=== PATIENT | female | born 1935 | race Hispanic/Latino ===

== ENCOUNTER 2016-04-11 06:08 | Inpatient (IN) | payer MEDICARE ==
--- NOTE | 2016-04-10 19:38 | Admit Criteria Form ---
Admission Criteria Documentation: AMBULATORY SURGERY EXCEPTION CRITERIA Ambulatory Surgery Exception Criteria ( Place 'X' for any and all applicable criteria): Surgery or procedure performed on ambulatory basis may require inpatient stay for[A] ANY ONE of the following(1)(2)(3)(4)(5)(6)(7)(8)(9): [X] I. A preoperative situation, condition, or finding that warrants inpatient stay as indicated by ANY ONE of the following: [] a) Inpatient care needed because of severity of a disease or condition rather than the surgery (eg, severe cardiac or respiratory disease, severe infection) (15) (16 ) (17) (18) [] b) Emergent procedure (eg, angioplasty for acute ischemia)(19) [] c) Complex surgical approach or situation as indicated by ANY ONE of the following(3): [] i) Open approach needed instead of usual endoscopic, transcatheter, or other less invasive procedure [] ii) Difficult approach because of previous operation [] iii) Airway monitoring required after open neck procedures(20)(21) [] iv) Large mass requiring unusually extensive dissection [] v) Additional complicating feature requiring inpatient care (eg, drain management)(22(23): [X] d) Major surgery in a pt with high anesthetic risk as indicated by ANY ONE of the following (2)(3)(5)(7)(8): [X] i) ASA risk class III or higher (severe systemic disease impairing function) [D] [] ii) Advanced age (eg, older than 85 years)(14)(24) [] iii) Symptomatic heart failure(25) [] iv) Symptomatic asthma or COPD(8)(21) [] v) Morbid obesity with hemodynamic or respiratory problems(20)( 21)(26)(27) [] vi) Obstructive sleep apnea(20)(21) [] vii) Former premature infants who are younger than 60 weeks [] viii) High risk for severe postoperative abnormalities (eg, severe postoperative hypocalcemia after parathyroidectomy for severe hyperparathyroidism)(27)( 28) [] ix) Unstable angina(25) [] e) Drug-related risk requiring inpatient stay as indicated by ANY ONE of the following(5)(10)(14)(32)(33) [] i) Procedure requires discontinuing drugs or other therapy (eg , antiarrhythmic medication, antiseizure medication), which necessitates inpatient observation or treatment.(18)(31) [] ii) Major surgery and high risk drug use as indicated by ANY ONE of the following: [] 1) Active abuse of cocaine or similar drug [] 2) Monoamine oxidase inhibitor use [] 3) Other drug identified as posing risk [] f) Inadequate outpatient care situation as indicated by ANY ONE of the following(5)(10)(14)(32)(33) [] i) Patient lives remote from medical facility and procedure has urgent complication potential, and temporary nearby residence cannot be arranged [] ii) Patient will have postprocedure incapacitation and inadequate assistance at home, or alternative level of care cannot be arranged. [] iii) Patient will have long general anesthesia or procedure side effect resolution time, and competent person to stay with patient on first postoperative night at home or alternative level of care cannot be arranged. []iv) Other inadequate outpatient situation that cannot be handled by other means [] II. A perioperative event, condition, or finding that warrants inpatient stay as indicated by ANY ONE of the following (1)(2)(3): [] a) Inadequate physiologic recovery: cardiovascular, respiratory, or hemodynamic status not normal or near preoperative baseline(18) [] b) Hemodynamic instability [] c) Patient not alert with near normal or baseline mental status [] d) Temperature not normal or as expected and not appropriate for outpatient treatment of condition [] e) Ambulatory or appropriate activity level status not yet achieved post procedure [E](34)(35)(36) [] f) Operative site not appropriate (eg, unexpected or excessive drainage or bleeding) [] g) Postoperative effects not resolved or adequately managed (eg, significant pain or vomiting not appropriate for outpatient or next level of care)(10)(12) [] h) Complicating features requiring inpatient care as indicated by ANY ONE of the following(37): [] i) Severe complications of procedure (eg, bowel injury, airway compromise, vascular injury,severe hemorrhage) [] ii) Extensive (eg, dissection far beyond usual scope of procedure ) or prolonged (eg, 120 minutes beyond usual) surgery needed requiring inpatient postoperative care [] iii) Conversion to an open or complex procedure that requires inpatient care (eg, open vs laparoscopic cholecystectomy, abdominal vs vaginal hysterectomy)(38) [] iv) Comorbid condition or test result identified during or post procedure that requires inpatient care (7) [] v) Malignant hyperthermia(30) [] vi) Other complicating feature requiring inpatient care(22)(23) Inpatient stay may be needed until ALL of the following are present (1)(2)(3)(4) (5)(6)(10)(14)(33)(40): []a) Physiologic recovery: cardiovascular, respiratory, and hemodynamic status normal or near preoperative baseline []b) Hemodynamic stability []c) Patient alert, with near normal or baseline mental status []d) Temperature appropriate: patient afebrile or temperature appropriate for outpt treatment of condition []e) Activity level appropriate: ambulatory or appropriate activity level post procedure []f) Operative site appropriate as indicated by ALL of the following: []i) Site dry or with expected drainage []ii) Any blood noted is as expected for procedure. []g) Postoperative effects resolved or managed as indicated by ALL of the following: []i) Pain management appropriate for outpatient (or next level of) care(10) []ii) Minimal nausea and vomiting: if present, successfully treated with oral medication(12) []iii) Headache, dizziness, or drowsiness (if present) are mild. []h) Voiding status acceptable as indicated by ANY ONE of the following: []i) Voiding spontaneously []ii) No voiding but instructions given for follow-up in 6 to 8 hours []iii) Urinary catheter in place, and instructions given for follow-up []i) Complicating features requiring inpatient care manageable at a lower level of care(37) []j) Comorbid conditions manageable at a lower level of care(37) The original [employer] content created by [employer] has been revised. The portions of the content which have been revised are identified through the use of italic text or in bold, and [employer] has neither reviewed nor approved the modified material. All other unmodified content is copyright [employer]. Please see references footnoted in the original [employer] edition 2016 Admission Criteria Met: Yes
[~2016-04-11 06:08] MED LIST: NACL 0.9% 1000 ML 1,000 ML IV SCH; VANCOMYCIN/NS 1 GM/250 ML 1 GM/250 ML BAG IV NR
[2016-04-11] MEDS ORDERED: NACL BACTERIOSTATIC INFILTRATI ONE (06:42)
--- NOTE | 2016-04-11 07:08 | Anesthesia Consultation ---
Anesthesia Consult and Med Hx Date of service: 04/11/16 - Airway Anesthetic Teeth Evaluation: Dentures ROM Head & Neck: Adequate Mental/Hyoid Distance: Adequate Mallampati Class: Class II Intubation Access Assessment: Probably Good - Pulmonary Exam CTA: Yes - Cardiac Exam Cardiac Exam: RRR - Pre-Operative Health Status ASA Pre-Surgery Classification: ASA3 Proposed Anesthetic Plan: General - Pulmonary Hx Smoking: Yes Hx Asthma: Yes - Cardiovascular System Hx Hypertension: Yes (10 YRS) Hx Heart Murmur: Yes - Endocrine Hx Hypothyroidism: Yes (1988)
--- NOTE | 2016-04-11 07:09 | Anesthesia Day of Surgery ---
Anesthesia Day of Surgery - Day of Surgery Patient Examined: Yes Patient H&P Reviewed: Yes Patient is NPO: Yes
[2016-04-11 07:11] LABS: Basophils % (Auto) 0.5 % (0.0-1.8); Eosinophils % (Auto) 3.4 % (0.0-4.3); Hemoglobin 13.2 gm/dl (10.1-14.3); Mean Corpuscular HGB Conc 33 % (30-34); Mean Corpuscular Hemoglobin 28 pg (28-32); Mean Corpuscular Volume 85 fl (79-97); Platelet Count 289 K/mm3 (140-440); Red Blood Count 4.69 M/mm3 (3.65-5.03); White Blood Count 8.2 K/mm3 (4.5-11.0)
[2016-04-11 07:22] LABS: Calcium 9.1 mg/dL (8.4-10.2); Chloride 100.1 mmol/L (98-107); Potassium 3.9 mmol/L (3.6-5.0)
[2016-04-11] MEDS: VERSED IV PRN ×2 (07:26→07:44)
[2016-04-11] MEDS ORDERED: XYLOCAINE MPF 2% ONE (07:42)
[2016-04-11] MEDS ORDERED: ZEMURON IV ONE ×2 (07:42→10:15)
[2016-04-11] MEDS ORDERED: DIPRIVAN 10 MG/ML IV ONE (07:43)
[2016-04-11] MEDS ORDERED: SUBLIMAZE ONE (07:43)
[2016-04-11] MEDS ORDERED: VERSED IV NR (08:00)
[2016-04-11] MEDS ORDERED: ePHEDrine SULFATE ONE (08:31)
[2016-04-11] MEDS ORDERED: DECADRON ONE (08:34)
[2016-04-11] MEDS ORDERED: ZOFRAN ONE (08:35)
[2016-04-11] MEDS ORDERED: NEO SYNEPHRINE/NS Syringe(OR USE) IV ONE (08:35)
[2016-04-11] MEDS ORDERED: HEPARIN 10,000 UNITS/10 ML ONE ×2 (09:01)
[2016-04-11] MEDS ORDERED: LACTATED RINGERS 0 ML ONE (09:01)
[2016-04-11] MEDS ORDERED: OMNIPAQUE (240 MG) IV ONE (09:31)
[2016-04-11] MEDS ORDERED: MARCAINE 0.5% INFILTRATI ONE (09:31)
[2016-04-11] MEDS ORDERED: HEPARIN 10,000 UNITS/10 ML 4,000 UNIT in NACL 0.9% 1000 ML 1,000 ML IR ONE (09:32)
[2016-04-11] MEDS ORDERED: NACL 0.9% 250ML IV ONE (09:33)
[2016-04-11] MEDS ORDERED: LACTATED RINGERS 1,000 ML ONE (10:15)
[2016-04-11] MEDS ORDERED: BLOXIVERZ ONE (10:38)
[2016-04-11] MEDS ORDERED: ROBINUL ONE (10:38)
[2016-04-11] MEDS ORDERED: DILAUDID ONE (10:57)
--- NOTE | 2016-04-11 11:02 | Consultation ---
History of Present Illness Consult date: 04/11/16 Requesting physician: KALEIGH RIVERA Reason for consult: COPD, other (s/p Triple A endovascular repair) History of present illness: PULMONARY/CCM CONSULT NOTE (Full dictation # [id number]) Please see dictated notes for full details Medications and Allergies Allergies Allergy/AdvReac Type Severity Reaction Status Date / Time quinine Allergy Vomiting Verified 04/09/16 15:07 Sulfa (Sulfonamide Allergy Rash Verified 04/11/16 08:20 Antibiotics) Penicillins AdvReac Anaphylaxis Verified 04/11/16 08:20 Home Medications Medication Instructions Recorded Confirmed Last Taken Type ALPRAZolam [Alprazolam] 0.25 mg PO QDAY 04/09/16 04/09/16 04/10/16 History ALPRAZolam [Alprazolam] 0.5 mg PO HS 04/09/16 04/09/16 04/10/16 History Acetaminophen [Tylenol] 650 mg PO Q6HR PRN 04/09/16 04/09/16 04/10/16 History Amlodipine Besylate [Amlodipine 5 mg PO QDAY 04/09/16 04/11/16 04/11/16 04:00 History Besylate] FLUoxetine [PROzac] 20 mg PO QDAY 04/09/16 04/09/16 04/10/16 History Levothyroxine [Synthroid] 125 mcg PO QAM 04/09/16 04/11/16 04/11/16 04:00 History Losartan Potassium [Losartan 100 mg PO QDAY 04/09/16 04/11/16 04/11/16 04:00 History Potassium] Omeprazole Magnesium [PriLOSEC Otc] 20 mg PO QDAY 04/09/16 04/09/16 04/10/16 History Active Meds: Active Medications Enoxaparin Sodium (Lovenox) 40 mg SUB-Q QDAY [facility] Sodium Chloride (Nacl 0.9% 1000 Ml) 1,000 mls @ 42 mls/hr IV DIRECT [facility] Last Admin: 04/11/16 07:19 Dose: 42 mls/hr Vancomycin HCl (Vancomycin/Ns 1 Gm/250 Ml) 1 gm in 250 mls @ 0 mls/hr IV PREOP NR PRN Reason: Protocol Stop: 04/11/16 23:59 Last Admin: 04/11/16 07:30 Dose: 166 mls/hr Midazolam HCl (Versed) 1 mg IV PREOP NR Stop: 04/11/16 23:59 Last Admin: 04/11/16 07:24 Dose: 1 mg Midazolam HCl (Versed) 2 mg IV PREOP PRN PRN Reason: Anxiety Stop: 04/11/16 23:59 Last Admin: 04/11/16 07:44 Dose: 1 mg Physical Examination Vital signs: Vital Signs Temp Pulse Resp BP Pulse Ox 98.9 F 73 16 123/69 94 04/11/16 06:55 04/11/16 06:55 04/11/16 06:55 04/11/16 06:55 04/11/16 06:55 Results - Laboratory Findings CBC and BMP: 04/11/16 06:49 04/11/16 06:49 PT/INR, D-dimer PT 13.1 Sec. (12.2-14.9) 04/11/16 06:49 INR 1.00 (0.87-1.13) 04/11/16 06:49 Abnormal lab findings: Abnormal Labs 04/11/16 04/11/16 04/11/16 06:49 06:49 06:49 Lymph % (Auto) 37.8 H [place] % (Auto) 9.0 H BUN 22 H Crossmatch See Detail
[2016-04-11] MEDS ORDERED: TYLENOL PO PRN (11:31)
[2016-04-11] MEDS ORDERED: MORPHINE IV PRN ×2 (11:32)
--- NOTE | 2016-04-11 11:56 | Operative Report ---
Operative Report Operative Report: Date of procedure: 04/11/2016 Pre-operative diagnosis: Symptomatic abdominal aortic aneurysm, peripheral vascular disease with claudication bilateral lower extremities Post-operative diagnosis: Same Procedure name(s): Percutaneous endovascular repair of abdominal aortic aneurysm using nodular bifurcated endoprosthesis with single docking limb ([place] Excluder), with fluoroscopic supervision and interpretation #2 insertion of aortic cuff lan/wan engineer, with fluoroscopic supervision and interpretation #3 insertion of catheter into the distal thoracic aorta via bilateral groin approach #4 duplex guided cannulation of bilateral common femoral arteries Surgeon: Dar Garay MD Vice President Payer: Dr. Jayashree Ibarra Anesthesia: Gen. endotracheal EBL: Less than 100 mL Specimen(s): None Complications: None Findings: Excellent deployment of the [place] Excluder despite tortuous aorta with flow limiting thombus mid aneurysm. Initial gutter leak proximal deployment zone successfully treated with a aortic cuff extension device. No evidence of endoleak on completion angiogram Procedure:Patient in the supine position after adequate levels of general endotracheal anesthesia was obtained and all appropriate monitoring devices were placed and abdomen and groin were prepped and draped using standard sterile technique. Access was then obtained sequentially in the right and then the left groin percutaneous technique with duplex guidance with micropuncture needles. Microwire was advanced retrograde replaced by a 5 [place]yrgyz introducer and J wires advanced fluoroscopically into the abdominal aorta. Gradually 6 [place]z introducers were placed in each groin and then proglide percutaneous closure devices were deployed two per side using standard technique. Six [place]yrgyz introducers then placed in each groin over the J-wire then vertebral catheter was used to advance the wires into the suprarenal aorta. Wires were then replaced with Amplatz Super Stiff wires and then the 18 [place] introducer was placed on the left. A 12 [place]yr[place]z introducer was placed on the right A pigtail catheter was then placed up the right side located at the anticipated site of the renal arteries. A 26 x 12 x 16 trunk ipsilateral leg endoprosthesis then advanced through the left side oriented with cross gate technique and advanced and its undeployed proximal gate located above the iliac bifurcation. 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 Were able however to locate the gate just distal to the mid aortic stenosis facilitate cannulation. Contrast was injected which further delineated the location of the renals and all devices were adjusted appropriately. We then partially deployed the device and cannulated the contralateral gate using a vertebral and subsequently a SOS omni catheter. Once successful cannulation was confirmed the Glidewire was replaced with a stiff wire through the contralateral gate .Minor adjustments were made to the position of the endoprosthesis finalizing its location at the immediate infrarenal position. Contralateral leg 18 x 12 iliac llimb was deployed. A compliant balloon was then advanced to the proximal graft and the trunk was posted using standard operating procedures. Once again care was taken not to extend the balloon above the device as to minimize the potential for thromboembolic embolization. Each of the limbs were then posted using a compliant balloon. Angiogram was performed which showed no type I endoleak proximally but there was a large gutter type I leak at the proximal graft. A 26 x 3 aortic lan/wan engineer cuff was deployed just low the renals and posted. Repeat angiogram showed complete resolution of the gutter type I endoleak. The angiogram showed other Endo leaks and the external iliacs were patent with preservation of both internal iliacs. At this point the Amplatz were exchanged for Bentson wires .We sequentially removed the sheaths from the each groin and deployed the pro glide closure devices with excellent hemostatic capture. The left side required one additional Pro-glide closure device for hemostasis. Each of the groins were then closed using Monocryl suture. Should note that each of the groin to the previously been blocked with Marcaine. She was then extubated returned the recovery room in stable condition having tolerated the procedure well.
--- NOTE | 2016-04-11 12:38 | XRay Report ---
AP CHEST History: Central line placement. Findings: A left IJ central line has been inserted which terminates in the mid SVC. There is no evidence for pneumothorax. Chronic changes in both lungs, left greater than right, are stable since CT chest dated 02/09/14. Heart size is within normal limits. Impression: Left IJ central line placement as described. No pneumothorax.
--- NOTE | 2016-04-11 12:57 | Post Anesthesia Evaluation ---
- Post Anesthesia Evaluation Patient Participated: Yes Airway Patent: Yes Stable Respiratory Function: Yes Nausea/Vomiting: No Temp > 96.8F: Yes Pain Manageable: Yes Adequeate Hydration: Yes Anesthesia Complications: No Block Receding Appropriately: Not Applicable Patient on Ventilator: No
--- NOTE | 2016-04-11 15:42 | Consultation ---
History of Present Illness Consult date: 04/11/16 Requesting physician: KALEIGH GARAY Consult reason: post op evaluation History of present illness: The patient is an 80 year old female who is followed by Dr. Sanderson in the office who underwent percutaneous AAA repair today by Dr. Garay. Cardiology has been consulted for post-operative cardiac management. Currently she is resting comfortably in bed without complaints. She denies any chest pain or shortness of breath. Echo done 03/2016 showed EF 55-60%, mild AR. Lexiscan thallium stress test done 03/2016 was negative for ischemia. Past History Past Medical History: COPD, hypertension, hypothyroidism, PVD, other (asthma) Past Surgical History: cataract removal, hysterectomy, Other (bladder surgery, nuck surgery, lung surgery) Social history: lives with family. denies: smoking, alcohol abuse, prescription drug abuse, IV drug use Family history: no significant family history Medications and Allergies Allergies Allergy/AdvReac Type Severity Reaction Status Date / Time quinine Allergy Vomiting Verified 04/09/16 15:07 Sulfa (Sulfonamide Allergy Rash Verified 04/11/16 08:20 Antibiotics) Penicillins AdvReac Anaphylaxis Verified 04/11/16 08:20 Home Medications Medication Instructions Recorded Confirmed Last Taken Type ALPRAZolam [Alprazolam] 0.25 mg PO QDAY 04/09/16 04/09/16 04/10/16 History ALPRAZolam [Alprazolam] 0.5 mg PO HS 04/09/16 04/09/16 04/10/16 History Acetaminophen [Tylenol] 650 mg PO Q6HR PRN 04/09/16 04/09/16 04/10/16 History Amlodipine Besylate [Amlodipine 5 mg PO QDAY 04/09/16 04/11/16 04/11/16 04:00 History Besylate] FLUoxetine [PROzac] 20 mg PO QDAY 04/09/16 04/09/16 04/10/16 History Levothyroxine [Synthroid] 125 mcg PO QAM 04/09/16 04/11/16 04/11/16 04:00 History Losartan Potassium [Losartan 100 mg PO QDAY 04/09/16 04/11/16 04/11/16 04:00 History Potassium] Omeprazole Magnesium [PriLOSEC Otc] 20 mg PO QDAY 04/09/16 04/09/16 04/10/16 History Active Meds: Active Medications Acetaminophen (Tylenol) 650 mg PO Q6HR PRN PRN Reason: Pain Acetaminophen/Hydrocodone Bitart ([place] 5/325) 2 each PO Q6H PRN PRN Reason: Pain, Moderate (4-6) Alprazolam (Xanax) 0.25 mg PO QDAY [facility] Alprazolam (Xanax) 0.5 mg PO HS [facility] Amlodipine Besylate (Norvasc) 5 mg PO QDAY [facility] Aspirin (Baby Aspirin) 81 mg PO QDAY [facility] Enoxaparin Sodium (Lovenox) 40 mg SUB-Q QDAY [facility] Fluoxetine HCl (Prozac) 20 mg PO QDAY [facility] Sodium Chloride (Nacl 0.9% 1000 Ml) 1,000 mls @ 42 mls/hr IV DIRECT [facility] Last Admin: 04/11/16 07:19 Dose: 42 mls/hr Vancomycin HCl (Vancomycin/Ns 1 Gm/250 Ml) 1 gm in 250 mls @ 0 mls/hr IV PREOP NR PRN Reason: Protocol Stop: 04/11/16 23:59 Last Admin: 04/11/16 07:30 Dose: 166 mls/hr Sodium Chloride (Nacl 0.9% 1000 Ml) 1,000 mls @ 75 mls/hr IV DIRECT [facility] Stop: 04/12/16 06:52 Sodium Chloride (Nacl 0.9% 1000 Ml) 1,000 mls @ 75 mls/hr IV DIRECT [facility]ER[facility] Stop: 04/12/16 07:19 Levothyroxine Sodium (Synthroid) 125 mcg PO QAM [facility] Losartan Potassium (Cozaar) 100 mg PO QDAY [facility] Morphine Sulfate (Morphine) 2 mg IV Q4H PRN PRN Reason: Pain, Moderate (4-6) Morphine Sulfate (Morphine) 4 mg IV Q4H PRN PRN Reason: Pain , Severe (7-10) Pantoprazole Sodium (Protonix) 20 mg PO QDAY [facility] Review of Systems Constitutional: no fever, no chills Ears, nose, mouth and throat: no nasal congestion, no nasal discharge, no sinus pressure Cardiovascular: no chest pain, no palpitations, no shortness of breath, no dyspnea on exertion Respiratory: no cough, no shortness of breath, no dyspnea on exertion, no congestion, no wheezing Gastrointestinal: no abdominal pain, no nausea, no vomiting, no diarrhea Genitourinary Female: no dysuria, no urgency Musculoskeletal: no neck stiffness, no neck pain, no myalgias Integumentary: no rash, no pruritis Neurological: no parathesias, no numbness, no tingling, no headaches Endocrine: no cold intolerance, no heat intolerance Hematologic/Lymphatic: no easy bruising, no easy bleeding Allergic/Immunologic: no urticaria, no wheezing Physical Examination Vital Signs Temp Pulse Resp BP Pulse Ox 98.9 F 73 16 123/69 94 04/11/16 06:55 04/11/16 06:55 04/11/16 06:55 04/11/16 06:55 04/11/16 06:55 General appearance: no acute distress HEENT: Positive: Normocephaly, Mucus Membranes Moist Neck: Positive: neck supple, trachea midline Cardiac: Positive: Reg Rate and Rhythm, S1/S2, Systolic Murmur Lungs: Positive: clear to auscultation Neuro: Positive: Grossly Intact Abdomen: Positive: Soft, Active Bowel Sounds. Negative: Tender Skin: Positive: Clear. Negative: Rash Extremities: Present: normal. Absent: edema Results 04/11/16 06:49 04/11/16 06:49 Coagulation 04/11/16 Range/Units 06:49 PT 13.1 (12.2-14.9) Sec. INR 1.00 (0.87-1.13) CBC 04/11/16 Range/Units 06:49 WBC 8.2 (4.5-11.0) K/mm3 RBC 4.69 (3.65-5.03) M/mm3 Hgb 13.2 (10.1-14.3) gm/dl Hct 40.0 (30.3-42.9) % Plt Count 289 (140-440) K/mm3 Lymph # 3.1 (1.2-5.4) K/mm3 [place] # 0.7 (0.0-0.8) K/mm3 Eos # 0.3 (0.0-0.4) K/mm3 Baso # 0.0 (0.0-0.1) K/mm3 Comprehensive Metabolic Panel 04/11/16 Range/Units 06:49 Sodium 138 (137-145) mmol/L Potassium 3.9 (3.6-5.0) mmol/L Chloride 100.1 (98-107) mmol/L Carbon Dioxide 22 (22-30) mmol/L BUN 22 H (7-17) mg/dL Creatinine 1.1 (0.7-1.2) mg/dL Glucose 97 (65-100) mg/dL Calcium 9.1 (8.4-10.2) mg/dL - Imaging and Cardiology Echo: report reviewed (03/2016: EF 55-60%, mild AR) EKG: image reviewed EKG interpretations - Telemetry EKG Rhythm: Sinus Rhythm Assessment and Plan S/p percutaneous AAA repair mgt. per vascular surgery Hypertension stable continue norvasc,losartan COPD Hypothyroidism Stable cardiac status. Continue current management. Will follow. The patient has been seen in conjunction with Dr. Reynoso who agrees with the assessment and plan of care. Thank you Dr. Garay for allowing us to participate in the care of this patient.
[2016-04-11] MEDS ORDERED: NACL 0.9% 1000 ML 1,000 ML IV SCH ×2 (17:33→18:00)
[2016-04-11] MEDS: BABY ASPIRIN PO SCH (18:59)
[2016-04-11] MEDS: XANAX PO SCH (21:28)
[2016-04-11] MEDS: PROzac PO SCH (21:28)
[2016-04-11] MEDS ORDERED: PROTONIX PO SCH (22:00)
[2016-04-11] MEDS: NORCO 5/325 PO PRN (23:25)
[2016-04-11] MEDS ORDERED: KIONEX PO ONE (23:58)
--- NOTE | 2016-04-12 00:32 | Consultation ---
CONSULTING PHYSICIAN: Dar Garay MD REASON FOR CONSULTATION: Need for ICU admission, status post abdominal aortic aneurysm repair. CHIEF COMPLAINT AND HISTORY OF PRESENT ILLNESS: The patient is a now 80-year-old female with past medical history amongst other things significant for a diagnosis of chronic obstructive lung disease she tells me, but also AAA aneurysm that they have been watching for a while. The patient apparently started having some symptoms, recently was seen in the vascular surgeon's office and she had woken up sick to her stomach on the day of presentation. Evaluation revealed that she needed attention to the AAA aneurysm. She was admitted for an elective percutaneous endovascular repair of the abdominal aortic aneurysm and postop, she was transferred to the intensive care unit. When I stopped by to see her, she was lying in bed, asking for something to drink. Denied any acute chest or abdominal pain. Denied any diarrhea. Denied any nausea, vomiting. She states that she is not on home oxygen, but she feels like she needs it at times. She was diagnosed with COPD a few years back, but never followed up with a contract negotiation manager at that time. She does have a 30+ pack year remote tobacco smoking history, quit smoking in 1996. That really is as much of the history of presentation as I have. PAST MEDICAL HISTORY: Again, significant for essential hypertension, hypothyroidism, diverticulitis of the large intestine, and anxiety disorder. PAST SURGICAL HISTORY: She has had a hysterectomy. She has had neck surgery and she has had some type of a lung surgery that she does not know. MEDICATIONS: She was on at the time I stopped by to see her, according to the medication administration record included the following: Tylenol 650 mg p.o. q.6 hours p.r.n. pain, [place] 5/325 two tablets p.o. q.6 hours p.r.n., Xanax 0.5 mg p.o. at bedtime as well as 0.25 mg p.o. q.a.m., Norvasc 5 mg p.o. daily, aspirin 81 mg p.o. daily, Lovenox 40 mg subcutaneous daily, Prozac 20 mg p.o. daily, Levoxyl 125 mcg p.o. q.a.m., Cozaar 100 mg p.o. daily, morphine sulfate 2 mg IV q. 4 hours p.r.n. moderate pain, 4 mg IV hours p.r.n. severe pain, Protonix 20 mg p.o. daily, vancomycin, she received 1 gram IV preop. ALLERGIES: To quinine, to sulfa drugs, to penicillins, nature of this allergy is unknown. DIET: Obese lady. Denies acute weight loss or gain in the preceding few weeks to months. FAMILY AND SOCIAL HISTORY: Lives in the community, 20+ pack year remote tobacco smoking history. Denies current alcohol, tobacco, or illicit drug use or abuse. REVIEW OF SYSTEMS: No loss of consciousness. No new onset seizures. No gross hematochezia or melena. No gross hematuria or dysuria. She had some mild abdominal discomfort before the surgery. No hematemesis. No hemoptysis. No palpitations. She admits to nonrestorative sleep. She is unclear if she has witnessed apneas. Complete review of systems obtained. Pertinent positives and/or negatives as in body of history above, otherwise they are noncontributory. PHYSICAL EXAMINATION: VITAL SIGNS: At presentation, she was afebrile, temperature 98.9, pulse 73, respiratory rate 16, blood pressure 123/69, oxygen sats were 94%; however, that is on 2 liters nasal cannula. HEAD, EYES, EARS, NOSE, AND THROAT: Pupils are equal, round, about 3-4 mm, reactive to light. Extraocular muscle movements are intact. Grossly, no palpable lymph nodes in the supraclavicular or submandibular lymph node chains. Oropharynx is a Mallampati #2-3 oropharynx, no significant posterior oropharyngeal erythema. LUNGS: Auscultation of both lung garcia, diminished bilateral breath sounds; however, clear. HEART: Heart sounds 1 and 2 are heard. There were regular rate and rhythm at the time of my evaluation. ABDOMEN: Soft. Bowel sounds are positive, nontender. EXTREMITIES: Without overt digital clubbing, cyanosis, or pedal edema. NEUROLOGIC: She has an essential tremor to both upper extremities, otherwise exam is nonfocal. LABORATORY DATA: From my review, white cell count 8200, hemoglobin , hematocrit 40.0, platelets 289. INR is 1.0. Serum sodium 138, potassium 3.9, chloride 100, bicarbonate 22, BUN 22, creatinine 1.1, glucose 97. I do not have any radiographic studies for review. ASSESSMENT AND PLAN: We have an elderly lady, status post abdominal aortic aneurysm repair, doing relatively well, I do feel has a more significant amount of COPD than she admitting to just based on her symptoms, as well as the exam and the paucity of breath sounds. I will get a chest x-ray right now first of all to see what kind of surgery she might have had if it is evident on the x-ray and also to better help quantify the degree of hyperinflation if that is present. She will benefit both from a pulmonary function testing post-discharge, but also a sleep study to rule out significant obstructive sleep apnea, which at this point, treatment of which would benefit her other comorbidities. Oxygen will be weaned to keep sats greater than or equal to 92-94%. I will put her on p.r.n. bronchodilators really. She declines been scheduled, states it causes her to be anxious and tachycardic. We will use it on a p.r.n. basis. Aspiration precautions will be maintained. Blood pressure is appropriate at this time. We will continue her antihypertensive medications. She is appropriately on DVT prophylaxis as well as GI prophylaxis. Flu and pneumonia vaccination will be per protocol. Thank you very much for the consult. We will follow along and make further recommendations as picture progresses/becomes clearer. JOB# [id number] SANAZ/SAMANTHA
[2016-04-12 05:44] LABS: Hematocrit 33.2 % (30.3-42.9); Hemoglobin 10.8 gm/dl (10.1-14.3)
[2016-04-12 06:04] LABS: BUN/Creatinine Ratio 17.77; Calcium 8.1 mg/dL (8.4-10.2); Chloride 104.3 mmol/L (98-107); Potassium 4.1 mmol/L (3.6-5.0)
--- NOTE | 2016-04-12 08:37 | Progress Note ---
Assessment and Plan S/p percutaneous AAA repair mgt. per vascular surgery Hypertension stable continue norvasc, losartan COPD PAD Hypothyroidism Stable cardiac status. Continue current management. The patient has been seen in conjunction with Dr. Reynoso who agrees with the assessment and plan of care. Subjective Date of service: 04/12/16 Principal diagnosis: s/p AAA repair Interval history: The patient is sitting up in a chair eating breakfast. No new complaints. Sinus rhythm on the monitor. Objective Last Vital Signs Temp 97.9 F 04/12/16 04:00 Pulse 60 04/12/16 08:00 Resp 13 04/12/16 08:00 BP 129/59 04/12/16 08:00 Pulse Ox 99 04/12/16 08:00 - Physical Examination General: No Apparent Distress HEENT: Positive: Normocephaly, Mucus Membranes Moist Neck: Positive: neck supple, trachea midline Cardiac: Positive: Reg Rate and Rhythm, S1/S2 Lungs: Positive: clear to auscultation Neuro: Positive: Grossly Intact Abdomen: Positive: Soft, Active Bowel Sounds. Negative: Tender Skin: Positive: Clear. Negative: Rash Extremities: Present: normal. Absent: edema - Labs and Meds CBC 04/12/16 Range/Units 04:45 Hgb 10.8 (10.1-14.3) gm/dl Hct 33.2 D (30.3-42.9) % Comprehensive Metabolic Panel 04/12/16 Range/Units 04:45 Sodium 140 (137-145) mmol/L Potassium 4.1 (3.6-5.0) mmol/L Chloride 104.3 (98-107) mmol/L Carbon Dioxide 24 (22-30) mmol/L BUN 16 (7-17) mg/dL Creatinine 0.9 (0.7-1.2) mg/dL Glucose 94 (65-100) mg/dL Calcium 8.1 L (8.4-10.2) mg/dL - Imaging and Cardiology EKG: image reviewed Echo: report reviewed (03/2016: EF 55-60%, mild AR) - Telemetry EKG Rhythm: Sinus Rhythm
[2016-04-12] MEDS ORDERED: PLAVIX PO SCH (10:00)
[2016-04-12] MEDS ORDERED: NON-FORMULARY (Losartan Potassium [Losartan Potassium] 100 MG) PO SCH (10:00)
[2016-04-12] MEDS ORDERED: NON-FORMULARY (Omeprazole Magnesium [Prilosec Otc] 20 MG) PO SCH (10:00)
[2016-04-12] MEDS ORDERED: PROzac PO SCH (10:00)
[2016-04-12] MEDS ORDERED: PROTONIX PO SCH (10:00)
[2016-04-12] MEDS: XANAX PO SCH ×2 (11:10→21:10)
[2016-04-12] MEDS: PROTONIX PO SCH (11:10)
[2016-04-12] MEDS: SYNTHROID PO SCH (11:10)
[2016-04-12] MEDS: LOVENOX SUB-Q SCH (11:10)
[2016-04-12] MEDS: NORVASC PO SCH (11:10)
[2016-04-12] MEDS: BABY ASPIRIN PO SCH (11:10)
[2016-04-12] MEDS: COZAAR PO SCH (11:10)
--- NOTE | 2016-04-12 11:56 | Progress Note ---
Assessment and Plan Pt doing well post-op. Pt states she has severe stomach upset with ASA. Will convert to Plavix. Will increase act if tolerated then will d/c home later today. Rx plavix and narcotic for pain. O/w resume home meds as previously prescribed. D/c instructions given to pt and family at bedside. - Patient Problems (1) Abdominal aortic aneurysm (AAA) without rupture Current Visit: Yes Status: Acute Subjective Date of service: 04/12/16 Principal diagnosis: s/p AAA repair Interval history: Pt is awake and alert without specific complaints at present. OOB to chair earlier without difficulty. Objective - Constitutional Vitals: Vital Signs - 12hr 04/12/16 04/12/16 04/12/16 00:00 00:25 00:30 Temperature Pulse Rate 76 83 Pulse Rate [ From Monitor] Respiratory 19 12 20 Rate Respiratory Rate [Abdomen] Respiratory Rate [Right Leg ] Blood Pressure 128/49 130/55 O2 Sat by Pulse 95 97 Oximetry 04/12/16 04/12/16 04/12/16 00:31 01:00 01:30 Temperature Pulse Rate 79 79 75 Pulse Rate [ From Monitor] Respiratory 18 17 Rate Respiratory Rate [Abdomen] Respiratory Rate [Right Leg ] Blood Pressure 130/55 130/55 O2 Sat by Pulse 97 95 Oximetry 04/12/16 04/12/16 04/12/16 02:00 02:30 03:00 Temperature Pulse Rate 74 76 73 Pulse Rate [ From Monitor] Respiratory 17 18 18 Rate Respiratory Rate [Abdomen] Respiratory Rate [Right Leg ] Blood Pressure 140/54 129/55 128/46 O2 Sat by Pulse 97 97 97 Oximetry 04/12/16 04/12/16 04/12/16 03:30 04:00 04:30 Temperature 97.9 F Pulse Rate 77 77 74 Pulse Rate [ 74 From Monitor] Respiratory 26 H 14 20 Rate Respiratory Rate [Abdomen] Respiratory Rate [Right Leg ] Blood Pressure 127/52 120/59 135/56 O2 Sat by Pulse 96 97 97 Oximetry 04/12/16 04/12/16 04/12/16 05:00 05:30 06:00 Temperature Pulse Rate 68 60 58 L Pulse Rate [ From Monitor] Respiratory 12 17 15 Rate Respiratory Rate [Abdomen] Respiratory Rate [Right Leg ] Blood Pressure 117/57 122/50 118/48 O2 Sat by Pulse 97 96 97 Oximetry 04/12/16 04/12/16 04/12/16 06:30 07:00 07:30 Temperature Pulse Rate 60 59 L 71 Pulse Rate [ From Monitor] Respiratory 15 15 11 L Rate Respiratory Rate [Abdomen] Respiratory Rate [Right Leg ] Blood Pressure 128/56 130/51 141/64 O2 Sat by Pulse 96 96 97 Oximetry 04/12/16 04/12/16 04/12/16 08:00 08:30 09:00 Temperature 97.6 F Pulse Rate 60 64 61 Pulse Rate [ 77 From Monitor] Respiratory 16 18 16 Rate Respiratory Rate [Abdomen] Respiratory Rate [Right Leg ] Blood Pressure 129/59 121/58 127/53 O2 Sat by Pulse 98 96 96 Oximetry 04/12/16 04/12/16 04/12/16 09:30 10:00 11:10 Temperature Pulse Rate 77 65 66 Pulse Rate [ From Monitor] Respiratory 24 10 L Rate Respiratory 16 Rate [Abdomen] Respiratory 16 Rate [Right Leg ] Blood Pressure 127/53 116/46 155/86 O2 Sat by Pulse 95 98 Oximetry General appearance: Present: no acute distress - EENT Eyes: EOM intact ENT: hearing intact - Neck Neck: supple ([facility] TLC) - Respiratory Respiratory effort: normal (unlabored at rest on RA) Extremities: no ischemia, pulses intact (bilat DP), normal temperature, abnormal (Puncture sites intact, no erythema or drainage.) - Neurologic Neurologic: no focal deficits - Psychiatric Psychiatric: appropriate mood/affect, intact judgment & insight, cooperative - Labs CBC & Chem 7: 04/12/16 04:45 04/12/16 04:45 Labs: Abnormal lab results 04/12/16 Range/Units 04:45 Calcium 8.1 L (8.4-10.2) mg/dL
--- NOTE | 2016-04-12 12:01 | Progress Note ---
Subjective Date of service: 04/12/16 Principal diagnosis: s/p AAA repair Interval history: Seen and examined at bedside; 24 hour events reviewed; nursing and respiratory care staff consulted; no adverse overnight events reported to me; Objective Vital Signs - 12hr 04/12/16 04/12/16 04/12/16 00:25 00:30 00:31 Temperature Pulse Rate 83 79 Pulse Rate [ From Monitor] Respiratory 12 20 Rate Respiratory Rate [Abdomen] Respiratory Rate [Right Leg ] Blood Pressure 130/55 O2 Sat by Pulse 97 Oximetry 04/12/16 04/12/16 04/12/16 01:00 01:30 02:00 Temperature Pulse Rate 79 75 74 Pulse Rate [ From Monitor] Respiratory 18 17 17 Rate Respiratory Rate [Abdomen] Respiratory Rate [Right Leg ] Blood Pressure 130/55 130/55 140/54 O2 Sat by Pulse 97 95 97 Oximetry 04/12/16 04/12/16 04/12/16 02:30 03:00 03:30 Temperature Pulse Rate 76 73 77 Pulse Rate [ From Monitor] Respiratory 18 18 26 H Rate Respiratory Rate [Abdomen] Respiratory Rate [Right Leg ] Blood Pressure 129/55 128/46 127/52 O2 Sat by Pulse 97 97 96 Oximetry 04/12/16 04/12/16 04/12/16 04:00 04:30 05:00 Temperature 97.9 F Pulse Rate 77 74 68 Pulse Rate [ 74 From Monitor] Respiratory 14 20 12 Rate Respiratory Rate [Abdomen] Respiratory Rate [Right Leg ] Blood Pressure 120/59 135/56 117/57 O2 Sat by Pulse 97 97 97 Oximetry 04/12/16 04/12/16 04/12/16 05:30 06:00 06:30 Temperature Pulse Rate 60 58 L 60 Pulse Rate [ From Monitor] Respiratory 17 15 15 Rate Respiratory Rate [Abdomen] Respiratory Rate [Right Leg ] Blood Pressure 122/50 118/48 128/56 O2 Sat by Pulse 96 97 96 Oximetry 04/12/16 04/12/16 04/12/16 07:00 07:30 08:00 Temperature 97.6 F Pulse Rate 59 L 71 60 Pulse Rate [ 77 From Monitor] Respiratory 15 11 L 16 Rate Respiratory Rate [Abdomen] Respiratory Rate [Right Leg ] Blood Pressure 130/51 141/64 129/59 O2 Sat by Pulse 96 97 98 Oximetry 04/12/16 04/12/16 04/12/16 08:30 09:00 09:30 Temperature Pulse Rate 64 61 77 Pulse Rate [ From Monitor] Respiratory 18 16 24 Rate Respiratory Rate [Abdomen] Respiratory Rate [Right Leg ] Blood Pressure 121/58 127/53 127/53 O2 Sat by Pulse 96 96 95 Oximetry 04/12/16 04/12/16 10:00 11:10 Temperature Pulse Rate 65 66 Pulse Rate [ From Monitor] Respiratory 10 L Rate Respiratory 16 Rate [Abdomen] Respiratory 16 Rate [Right Leg ] Blood Pressure 116/46 155/86 O2 Sat by Pulse 98 Oximetry CBC and BMP: 04/12/16 04:45 04/12/16 04:45 ABG, PT/INR, D-dimer: PT/INR, D-dimer PT 13.1 Sec. (12.2-14.9) 04/11/16 06:49 INR 1.00 (0.87-1.13) 04/11/16 06:49 Abnormal lab findings: Abnormal Labs 04/11/16 04/11/16 04/11/16 06:49 06:49 06:49 Lymph % (Auto) 37.8 H [place] % (Auto) 9.0 H BUN 22 H Calcium Crossmatch See Detail 04/12/16 04:45 Lymph % (Auto) [place] % (Auto) BUN Calcium 8.1 L Crossmatch
--- NOTE | 2016-04-12 12:02 | Discharge Summary ---
Providers - Providers Date of Admission: 04/11/16 06:08 Date of discharge: 04/12/16 Attending physician: DAR RIVERA 04/11/16 Consult to Case Management [CONS] Routine Services Needed at Discharge: Home Health Services Notified:: YES 04/11/16 10:13 Consult to Physician [CONS] Urgent Consulting Provider: ADDISON DOTSON Reason For Exam: critical care management Place consult to:: cell phone Notified:: yes Was contact made?: Yes If yes, spoke with:: Time called:: 10:10 04/11/16 12:00 Consult to Physician [CONS] Routine Consulting Provider: NITIN SHAW Reason For Exam: post op cardiac care Place consult to:: RUFINA OWUSU Notified:: YES Primary care physician: ZULEIMA TRAYLOR Hospitalization Reason for admission: AAA without rupture Condition: Good Procedures: Operative Report Operative Report: Date of procedure: 04/11/2016 Pre-operative diagnosis: Symptomatic abdominal aortic aneurysm, peripheral vascular disease with claudication bilateral lower extremities Post-operative diagnosis: Same Procedure name(s): Percutaneous endovascular repair of abdominal aortic aneurysm using nodular bifurcated endoprosthesis with single docking limb ([place] Excluder), with fluoroscopic supervision and interpretation #2 insertion of aortic cuff foreign exchange student coordinator, with fluoroscopic supervision and interpretation #3 insertion of catheter into the distal thoracic aorta via bilateral groin approach #4 duplex guided cannulation of bilateral common femoral arteries Surgeon: Dar Rivera MD Mixer Foam Rubber: Dr. Jayashree Ibarra Anesthesia: Gen. endotracheal EBL: Less than 100 mL Specimen(s): None Complications: None Findings: Excellent deployment of the [place] Excluder despite tortuous aorta with flow limiting thombus mid aneurysm. Initial gutter leak proximal deployment zone successfully treated with a aortic cuff extension device. No evidence of endoleak on completion angiogram Hospital course: Pt admitted in prep for the above stated procedure which was performed without difficulty. Post-op the pt was transfer to the PACU and then the ICU. Cardiology and the Claims Administrator were consulted. Pt did well and appeared stable for d/c. D/c instructions were given to the pt who stated understanding and agreed. Will increase act if tolerated then will d/c home this afternoon. Disposition: DISCHARGED TO HOME OR SELFCARE - Discharge Diagnoses (1) Abdominal aortic aneurysm (AAA) without rupture Status: Acute Core Measure Documentation - Palliative Care Palliative Care/ Comfort Measures: Not Applicable - Core Measures Any of the following diagnoses?: none Exam - Constitutional Vitals: Temp Pulse Resp BP Pulse Ox 97.6 F 66 16 155/86 98 04/12/16 08:00 04/12/16 11:10 04/12/16 10:00 04/12/16 11:10 04/12/16 10:00 General appearance: Present: no acute distress - EENT Eyes: Present: EOM intact ENT: hearing intact - Neck Neck: Present: supple - Respiratory Respiratory effort: normal - Extremities Extremities: no ischemia, pulses intact - Psychiatric Psychiatric: appropriate mood/affect, intact judgment & insight, cooperative - Neurologic Neurologic: no focal deficits Plan Activity: advance as tolerated Weight Bearing Status: Weight Bear as Tolerated Diet: regular Wound: keep clean and dry Durable Medical Equipment Needed Upon Discharge: Bedside Commode Additional Instructions: Follow up Dr Rivera Follow up with: ARMIN KING JR, MD [Staff Physician] - 7 Days Prescriptions: Clopidogrel [Plavix] 75 mg PO QDAY #30 tablet oxyCODONE /ACETAMINOPHEN [Percocet 5/325] 1 tab PO Q4HR #40 tab
--- NOTE | 2016-04-12 14:25 | Progress Note ---
Subjective Date of service: 04/11/16 Principal diagnosis: s/p AAA repair Interval history: Patient is in good spirits. Pain is well controlled and is able to ambulate well. Will be discharged today. No nausea and vomiting. No anesthetic complications. Objective - Constitutional Vitals: Vital Signs - 12hr 04/12/16 04/12/16 04/12/16 02:30 03:00 03:30 Temperature Pulse Rate 76 73 77 Pulse Rate [ From Monitor] Respiratory 18 18 26 H Rate Respiratory Rate [Abdomen] Respiratory Rate [Right Leg ] Blood Pressure 129/55 128/46 127/52 O2 Sat by Pulse 97 97 96 Oximetry 04/12/16 04/12/16 04/12/16 04:00 04:30 05:00 Temperature 97.9 F Pulse Rate 77 74 68 Pulse Rate [ 74 From Monitor] Respiratory 14 20 12 Rate Respiratory Rate [Abdomen] Respiratory Rate [Right Leg ] Blood Pressure 120/59 135/56 117/57 O2 Sat by Pulse 97 97 97 Oximetry 04/12/16 04/12/16 04/12/16 05:30 06:00 06:30 Temperature Pulse Rate 60 58 L 60 Pulse Rate [ From Monitor] Respiratory 17 15 15 Rate Respiratory Rate [Abdomen] Respiratory Rate [Right Leg ] Blood Pressure 122/50 118/48 128/56 O2 Sat by Pulse 96 97 96 Oximetry 04/12/16 04/12/16 04/12/16 07:00 07:30 08:00 Temperature 97.6 F Pulse Rate 59 L 71 60 Pulse Rate [ 77 From Monitor] Respiratory 15 11 L 16 Rate Respiratory Rate [Abdomen] Respiratory Rate [Right Leg ] Blood Pressure 130/51 141/64 129/59 O2 Sat by Pulse 96 97 98 Oximetry 04/12/16 04/12/16 04/12/16 08:30 09:00 09:30 Temperature Pulse Rate 64 61 77 Pulse Rate [ From Monitor] Respiratory 18 16 24 Rate Respiratory Rate [Abdomen] Respiratory Rate [Right Leg ] Blood Pressure 121/58 127/53 127/53 O2 Sat by Pulse 96 96 95 Oximetry 04/12/16 04/12/16 04/12/16 10:00 11:10 12:00 Temperature 97.5 F L Pulse Rate 65 66 Pulse Rate [ From Monitor] Respiratory 10 L Rate Respiratory 16 Rate [Abdomen] Respiratory 16 Rate [Right Leg ] Blood Pressure 116/46 155/86 O2 Sat by Pulse 98 Oximetry - Labs CBC & Chem 7: 04/12/16 04:45 04/12/16 04:45 Labs: Abnormal lab results 04/12/16 Range/Units 04:45 Calcium 8.1 L (8.4-10.2) mg/dL
[2016-04-12] MEDS: PLAVIX PO SCH (16:29)
[2016-04-12] MEDS: PROzac PO SCH (21:07)
[2016-04-12] MEDS: NORCO 5/325 PO PRN (21:14)
[2016-04-12] MEDS ORDERED: AMBIEN PO PRN (21:46)
[2016-04-13] MEDS: XANAX PO SCH (10:00)
[2016-04-13] MEDS: SYNTHROID PO SCH (10:02)
[2016-04-13] MEDS: NORVASC PO SCH (10:02)
[2016-04-13] MEDS: PLAVIX PO SCH (10:02)
[2016-04-13] MEDS: COZAAR PO SCH (10:02)
[2016-04-13] MEDS: LOVENOX SUB-Q SCH (10:02)
[2016-04-13] MEDS: PROTONIX PO SCH (10:02)
[2016-04-13 11:10] VITALS: BP 142/66
--- NOTE | 2016-04-13 12:27 | Progress Note ---
Subjective Date of service: 04/13/16 Principal diagnosis: s/p AAA repair; COPD Interval history: Seen and examined at bedside; 24 hour events reviewed; nursing and respiratory care staff consulted; no adverse overnight events reported to me; Objective Vital Signs - 12hr 04/13/16 04/13/16 04/13/16 00:31 04:13 09:53 Temperature 98.2 F 98.1 F 97.7 F Pulse Rate [ 78 Left Radial] Pulse Rate [ Lying] Pulse Rate [ 75 82 Right Radial] Respiratory 18 18 20 Rate Blood Pressure [Lying] Blood Pressure 138/64 107/53 134/60 [Right Radial Artery] O2 Sat by Pulse 98 98 90 Oximetry 04/13/16 04/13/16 10:00 11:07 Temperature Pulse Rate [ Left Radial] Pulse Rate [ 76 Lying] Pulse Rate [ Right Radial] Respiratory Rate Blood Pressure 142/66 [Lying] Blood Pressure [Right Radial Artery] O2 Sat by Pulse 98 Oximetry CBC and BMP: 04/12/16 04:45 04/12/16 04:45 ABG, PT/INR, D-dimer: PT/INR, D-dimer PT 13.1 Sec. (12.2-14.9) 04/11/16 06:49 INR 1.00 (0.87-1.13) 04/11/16 06:49 Abnormal lab findings: Abnormal Labs 04/11/16 04/11/16 04/11/16 06:49 06:49 06:49 Lymph % (Auto) 37.8 H [place] % (Auto) 9.0 H BUN 22 H Calcium Crossmatch See Detail 04/12/16 04:45 Lymph % (Auto) [place] % (Auto) BUN Calcium 8.1 L Crossmatch
== END 2016-04-13 11:35 | disposition home health service (06) | DRG 269 ==
LOC: 3A 06:08 → CC1 12:16 → 4A 04-12 17:31
PROVIDERS: ADMIT Surgery Vascular Surgery; ATTEND Surgery Vascular Surgery
PROC: 04V03EZ Restriction of Abdominal Aorta with Branched or Fenestrated Intraluminal Device, One or Two Arteries, Percutaneous Approach (ICD-10-PCS; principal; 2016-04-11)
DX: I71.4 Abdominal aortic aneurysm, without rupture (principal); I70.213 Atherosclerosis of native arteries of extremities with intermittent claudication, bilateral legs; J45.909 Unspecified asthma, uncomplicated; I10 Essential (primary) hypertension; E03.9 Hypothyroidism, unspecified; J44.9 Chronic obstructive pulmonary disease, unspecified; F41.9 Anxiety disorder, unspecified; Z87.891 Personal history of nicotine dependence; Z88.2 Allergy status to sulfonamides; Z88.0 Allergy status to penicillin; Z88.8 Allergy status to other drugs, medicaments and biological substances; Z90.710 Acquired absence of both cervix and uterus; Z98.49 Cataract extraction status, unspecified eye; Z79.899 Other long term (current) drug therapy
CPT/HCPCS: 36415; 36620; 71010; 75952; 75953; 80048; 85014; 85018; 85025; 85610; 86850; 86870; 86900; 86901; 86902; 86922; 94760; C1725; C1760; C1768; C1769; C1887; C1894; C2629; J1100; J1170; J1644; J1650; J2250; J2370; J2405; J2704; J2710; J3010; J3370; J7030; J7050; J7120; Q9966